=== PATIENT | female | born 1985 | race Caucasian/White ===

== ENCOUNTER 2018-03-22 17:05 | Emergency (ER) | payer MEDICARE, OTHER ==
[~2018-03-22] VITALS: Ht 167.6 cm; Wt 108.9 kg
[~2018-03-22 17:05] MED LIST: ACET325 PO; ALBIPROI INH; ALBU8HFA2 INH; ALBU90OI6 INH; ALBU90OI61 INH; ALPR.25 PO; ALUMAGSIMA; ALUMAGX30 PO; ASCO500 PO; ASPI81EC PO; AZIT200SU PO; AZIT250 PO; Antivert12.5 MG PO; Antivert25 MG PO; BECL40OI INH; BIRTH CONTROL; CALCA500CH PO; CEFD300 PO; CITA20 PO; CRUTCH4 USE; DIPH12.5EL PO; DOCU100 PO; ERGO50000 PO; ESCI10 PO; ESCI5 PO; ESOM20 PO; Expectoran100 MG/51 PO; FERR325; FERSU220EL PO; FLUT.05NI; Flonase 0.05% N16 GM; HERBAL; HYDACE5 PO; HYDCHL25; Hydrocodone-Ap1 EA23 PO; IRON INFUSIONS; IRON150C PO; LAMO100; LANS30EC PO; LEVFLO500 PO; LORA.5 PO; LORA1; LORA1 PO; LORA2; LORA2 PO; MEDR150I IM; META800 PO; METCAR500 PO; METPRE4DP PO; METR500 PO; MOMENI; NAPR500 PO; Naprosyn500 MG PO; ONDA4ODT MM; ORACONA; OXYACE5T PO; OXYACEL PO; OXYC1L PO; PRED20 PO; PROACE100 PO; PROM25 PO; Prevacid Soluta30 MG PO; RANI150; RANITIDINE 75 MG; RXLORA1 PO; RXONDA4ODT MM; RXOXYACE PO; RXPROACE PO; RXSULTRIDS PO; SPIR25; SUCR1 PO; SULTRIDS PO; TRAM50 PO; Ultram50 MG PO; Zithromax200 MG/5 M GT; Zithromax200 MG/5 M PO; [UNRECOGNIZED DRUG - OTHER]
[2018-03-22 17:47] LABS: BASOPHILS ABSOLUTE AUTO 0.02 K/mm3 (0.00-0.23); BASOPHILS PERCENT AUTO 0 % (0-2); EOSINOPHILS ABSOLUTE AUTO 0.18 K/mm3 (0.00-0.68); EOSINOPHILS PERCENT AUTO 2 % (0-6); Hemoglobin 14.1 g/dL (11.5-16.0); IMMATURE GRAN ABSOLUTE AUTO 0.02 K/mm3 (0.00-0.10); IMMATURE GRAN PERCENT AUTO 0 % (0-1); LYMPHOCYTES ABSOLUTE AUTO 1.95 K/mm3 (0.84-5.20); LYMPHOCYTES PERCENT AUTO 22 % (21-46); MONOCYTES ABSOLUTE AUTO 0.52 K/mm3 (0.16-1.47); MONOCYTES PERCENT AUTO 6 % (4-13); Mean Corpuscular HGB 30.9 pg (26.0-34.0); Mean Corpuscular HGB Conc 32.8 g/dL (31.5-36.5); Mean Corpuscular Volume 94 fL (80-100); Mean Platelet Volume 9.6 fL (9.1-12.4); NEUTROPHILS ABSOLUTE AUTO 6.24 K/mm3 (1.96-9.15); NEUTROPHILS PERCENT AUTO 70 % (41-73); Platelet Count 335 K/mm3 (150-400); RDW Coefficient Variation 13.7 % (11.7-14.2); RDW Standard Deviation 47.5 fL (35.1-46.3); Red Blood Cell Count 4.57 M/mm3 (3.80-5.20); White Blood Cell Count 8.93 K/mm3 (4.00-11.30)
[2018-03-22 18:11] LABS: Alanine Aminotransfer (ALT/SGP 23 U/L (12-78); Albumin, Blood 4.5 g/dL (3.4-5.0); Albumin/Globulin Ratio 1.5 (0.8-1.8); Alk Phos 98 U/L (50-136); Anion Gap 9 mmol/L (6-16); Aspartate Aminotrans (AST/SGOT 12 U/L (12-37); Bilirubin, Total 0.4 mg/dL (0.1-1.0); Blood Urea Nitrogen 10 mg/dL (8-24); Bun/Creatinine Ratio 14.3 (12.0-20.0); CO2, Blood 22 mmol/L (21-32); Chloride, Blood 106 mmol/L (98-108); Globulin, Blood 3.1 g/dL (2.2-4.0); Glomerular Filtration Rate >60 (60-); Glucose, Blood 110 mg/dL (70-99); Potassium, Blood 3.9 mmol/L (3.5-5.5); Sodium, Blood 137 mmol/L (136-145); Total Protein, Blood 7.6 g/dL (6.4-8.2)
[2018-03-22] MEDS ORDERED: ASCO500 PO (19:14)
[2018-03-22] MEDS ORDERED: LORA.5 (19:16)
[2018-03-22] MEDS ORDERED: [UNRECOGNIZED DRUG - REMARK] (19:16)
[2018-03-22 19:31] LABS: Source, Urine Clean Catch
[2018-03-22 19:36] LABS: Bilirubin, Urine Neg (Neg); Blood, Urine Neg (Neg); Glucose Qualitative, Urine Neg (Neg); Ketones, Urine Neg (Neg); Leukocyte Esterase, Urine Neg (Neg); Nitrite, Urine Neg (Neg); Protein, Urine Neg (Neg); Specific Gravity, Urine 1.015 (1.003-1.022); Urobilinogen, Urine NORM (Normal)
[2018-03-22 19:42] LABS: Appearance, Urine Clear (Clear); Color, Urine Yellow (P-Yellow)
== END 2018-03-22 20:02 | disposition home or self-care (01) ==
LOC: ER 17:05
PROVIDERS: Emergency Medicine; Physician Assistant
DX: R10.31 Right lower quadrant pain (principal); Z88.0 Allergy status to penicillin; Z88.5 Allergy status to narcotic agent; Z88.1 Allergy status to other antibiotic agents; Z91.040 Latex allergy status; Z88.2 Allergy status to sulfonamides; Z79.899 Other long term (current) drug therapy; K21.9 Gastro-esophageal reflux disease without esophagitis; J45.909 Unspecified asthma, uncomplicated; F17.210 Nicotine dependence, cigarettes, uncomplicated
CPT/HCPCS: 36415; 80053; 81003; 81025; 83690; 85025; 99283

== ENCOUNTER 2018-04-16 15:31 | Emergency (ER) | payer MEDICARE, OTHER ==
[~2018-04-16] VITALS: Ht 167.6 cm; Wt 108.9 kg
[~2018-04-16 15:31] MED LIST changes: +LORA.5; +[UNRECOGNIZED DRUG - REMARK]
[2018-04-16 16:18] LABS: BASOPHILS ABSOLUTE AUTO 0.04 K/mm3 (0.00-0.23); BASOPHILS PERCENT AUTO 0 % (0-2); EOSINOPHILS ABSOLUTE AUTO 0.14 K/mm3 (0.00-0.68); EOSINOPHILS PERCENT AUTO 1 % (0-6); Hemoglobin 13.7 g/dL (11.5-16.0); IMMATURE GRAN ABSOLUTE AUTO 0.03 K/mm3 (0.00-0.10); IMMATURE GRAN PERCENT AUTO 0 % (0-1); LYMPHOCYTES ABSOLUTE AUTO 2.56 K/mm3 (0.84-5.20); LYMPHOCYTES PERCENT AUTO 26 % (21-46); MONOCYTES ABSOLUTE AUTO 0.58 K/mm3 (0.16-1.47); MONOCYTES PERCENT AUTO 6 % (4-13); Mean Corpuscular HGB Conc 33.4 g/dL (31.5-36.5); Mean Corpuscular Volume 93 fL (80-100); Mean Platelet Volume 9.6 fL (9.1-12.4); NEUTROPHILS ABSOLUTE AUTO 6.65 K/mm3 (1.96-9.15); NEUTROPHILS PERCENT AUTO 67 % (41-73); Platelet Count 370 K/mm3 (150-400); RDW Coefficient Variation 12.6 % (11.7-14.2); RDW Standard Deviation 43.1 fL (35.1-46.3); Red Blood Cell Count 4.42 M/mm3 (3.80-5.20)
[2018-04-16 16:48] LABS: Alanine Aminotransfer (ALT/SGP 23 U/L (12-78); Albumin, Blood 4.3 g/dL (3.4-5.0); Albumin/Globulin Ratio 1.4 (0.8-1.8); Alk Phos 99 U/L (50-136); Anion Gap 8 mmol/L (6-16); Aspartate Aminotrans (AST/SGOT 11 U/L (12-37); Bilirubin, Total 0.2 mg/dL (0.1-1.0); Blood Urea Nitrogen 9 mg/dL (8-24); Bun/Creatinine Ratio 13.4 (12.0-20.0); CO2, Blood 23 mmol/L (21-32); Calcium, Blood 9.1 mg/dL (8.5-10.1); Chloride, Blood 109 mmol/L (98-108); Creatinine, Blood 0.67 mg/dL (0.40-1.00); Glomerular Filtration Rate >60 (60-); Glucose, Blood 89 mg/dL (70-99); Potassium, Blood 3.3 mmol/L (3.5-5.5); Sodium, Blood 140 mmol/L (136-145); Total Protein, Blood 7.3 g/dL (6.4-8.2)
[2018-04-16 18:08] LABS: Magnesium, Blood 2.1 mg/dL (1.6-2.4)
== END 2018-04-16 19:00 | disposition home or self-care (01) ==
LOC: ER 15:31
PROVIDERS: Emergency Medicine
DX: I49.3 Ventricular premature depolarization (principal); R07.89 Other chest pain; R00.2 Palpitations; E87.6 Hypokalemia; K21.9 Gastro-esophageal reflux disease without esophagitis; J45.909 Unspecified asthma, uncomplicated; F41.9 Anxiety disorder, unspecified; F17.200 Nicotine dependence, unspecified, uncomplicated; Z88.0 Allergy status to penicillin; Z88.5 Allergy status to narcotic agent; Z88.7 Allergy status to serum and vaccine; Z91.040 Latex allergy status; Z88.1 Allergy status to other antibiotic agents; Z88.8 Allergy status to other drugs, medicaments and biological substances; Z88.6 Allergy status to analgesic agent; Z88.2 Allergy status to sulfonamides; Z79.899 Other long term (current) drug therapy
CPT/HCPCS: 36415; 71046; 80053; 83735; 84443; 85025; 93005; 93010; 99284

== ENCOUNTER 2021-02-03 13:17 | Emergency (ER) | payer MEDICARE, OTHER ==
[~2021-02-03] VITALS: Ht 167.6 cm; Wt 104.3 kg
[2021-02-03 14:14] LABS: BASOPHILS ABSOLUTE AUTO 0.03 K/mm3 (0.00-0.23); BASOPHILS PERCENT AUTO 0 % (0-2); EOSINOPHILS ABSOLUTE AUTO 0.14 K/mm3 (0.00-0.68); EOSINOPHILS PERCENT AUTO 2 % (0-6); Hematocrit 42.7 % (33.0-51.0); Hemoglobin 14.3 g/dL (11.5-16.0); IMMATURE GRAN ABSOLUTE AUTO 0.02 K/mm3 (0.00-0.10); IMMATURE GRAN PERCENT AUTO 0 % (0-1); LYMPHOCYTES ABSOLUTE AUTO 2.26 K/mm3 (0.84-5.20); LYMPHOCYTES PERCENT AUTO 28 % (21-46); MONOCYTES ABSOLUTE AUTO 0.59 K/mm3 (0.16-1.47); MONOCYTES PERCENT AUTO 7 % (4-13); Mean Corpuscular HGB 31.1 pg (26.0-34.0); Mean Corpuscular HGB Conc 33.5 g/dL (31.5-36.5); Mean Corpuscular Volume 93 fL (80-100); Mean Platelet Volume 9.8 fL (9.1-12.4); NEUTROPHILS ABSOLUTE AUTO 5.19 K/mm3 (1.96-9.15); NEUTROPHILS PERCENT AUTO 63 % (41-73); Platelet Count 362 K/mm3 (150-400); RDW Coefficient Variation 12.6 % (11.7-14.2); RDW Standard Deviation 42.7 fL (35.1-46.3); White Blood Cell Count 8.23 K/mm3 (4.00-11.30)
[2021-02-03 14:26] LABS: Alanine Aminotransfer (ALT/SGP 21 U/L (12-78); Albumin/Globulin Ratio 1.2 (0.8-1.8); Alk Phos 92 U/L (50-136); Anion Gap 6 mmol/L (6-16); Aspartate Aminotrans (AST/SGOT 10 U/L (12-37); Bilirubin, Total 0.4 mg/dL (0.1-1.0); Blood Urea Nitrogen 13 mg/dL (8-24); Bun/Creatinine Ratio 20.5 (12.0-20.0); CO2, Blood 24 mmol/L (21-32); Calcium, Blood 8.9 mg/dL (8.5-10.1); Chloride, Blood 109 mmol/L (98-108); Creatinine, Blood 0.64 mg/dL (0.40-1.00); Globulin, Blood 3.2 g/dL (2.2-4.0); Glomerular Filtration Rate >60 (60-); Glucose, Blood 83 mg/dL (70-99); Potassium, Blood 3.6 mmol/L (3.5-5.5); Sodium, Blood 139 mmol/L (136-145); Total Protein, Blood 7.2 g/dL (6.4-8.2)
[2021-02-03 15:11] LABS: Source, Urine Clean Catch
[2021-02-03 15:22] LABS: Bilirubin, Urine Neg (Neg); Blood, Urine Neg (Neg); Glucose Qualitative, Urine Neg (Neg); Ketones, Urine 2+ (Neg); Leukocyte Esterase, Urine Neg (Neg); Nitrite, Urine Neg (Neg); Protein, Urine Neg (Neg); Urobilinogen, Urine NORM (Normal)
[2021-02-03 15:27] LABS: Appearance, Urine Hazy (Clear); Color, Urine Pale Yellow (P-Yellow)
[2021-02-03 15:29] LABS: Bacteria Many /hpf; Red Blood Cells, Urine 0-2 /hpf (0-2); Squamous Epithelial Cells Few /hpf (Few); White Blood Cells, Urine 0-2 /hpf (0-5)
[2021-02-03] MEDS ORDERED: CEFP200 PO (15:51)
[2021-02-04] MEDS ORDERED: CEFP50SU PO (15:30)
== END 2021-02-03 16:36 | disposition home or self-care (01) ==
LOC: ER 13:17
PROVIDERS: Physician Assistant
DX: N39.0 Urinary tract infection, site not specified (principal); F17.210 Nicotine dependence, cigarettes, uncomplicated
CPT/HCPCS: 36415; 74177; 80053; 81001; 83690; 85025; 87086; 93005; 93010; 96374-59; 96375; 99284-25; J0780; J1885; Q9967

== ENCOUNTER 2024-09-16 17:42 | Observation (INO) | payer MEDICARE ==
[~2024-09-16] VITALS: Ht 170.2 cm; Wt 102.7 kg
[~2024-09-16 17:42] MED LIST changes: +CEFP200 PO; +CEFP50SU PO
[2024-09-16] MEDS ORDERED: Prochlorperazine Edisylate 10 mg Vial IV ONE (18:10)
[2024-09-16] MEDS ORDERED: Ketorolac Tromethamine 30mg Vial IV ONE (18:10)
[2024-09-16] MEDS ORDERED: Morphine Sulfate 4 MG/1 ML Injection IV ONE (18:30)
[2024-09-16] MEDS ORDERED: Lactated Ringer's 1,000 ML IV ONE (18:30)
[2024-09-16 18:48] LABS: BASOPHILS ABSOLUTE AUTO 0.05 K/mm3 (0.00-0.23); BASOPHILS PERCENT AUTO 0 % (0-2); EOSINOPHILS PERCENT AUTO 2 % (0-6); Hematocrit 40.5 % (33.0-51.0); IMMATURE GRAN ABSOLUTE AUTO 0.04 K/mm3 (0.00-0.10); IMMATURE GRAN PERCENT AUTO 0 % (0-1); LYMPHOCYTES ABSOLUTE AUTO 2.33 K/mm3 (0.84-5.20); LYMPHOCYTES PERCENT AUTO 19 % (21-46); MONOCYTES ABSOLUTE AUTO 0.57 K/mm3 (0.16-1.47); MONOCYTES PERCENT AUTO 5 % (4-13); Mean Corpuscular HGB 31.7 pg (26.0-34.0); Mean Corpuscular HGB Conc 34.6 g/dL (31.5-36.5); Mean Corpuscular Volume 92 fL (80-100); Mean Platelet Volume 9.1 fL (9.1-12.4); NEUTROPHILS ABSOLUTE AUTO 9.33 K/mm3 (1.96-9.15); NEUTROPHILS PERCENT AUTO 75 % (41-73); Platelet Count 312 K/mm3 (150-400); RDW Coefficient Variation 12.4 % (11.7-14.2); RDW Standard Deviation 41.9 fL (35.1-46.3); Red Blood Cell Count 4.42 M/mm3 (3.80-5.20); White Blood Cell Count 12.52 K/mm3 (4.00-11.30)
[2024-09-16 19:08] LABS: Albumin, Blood 4.1 g/dL (3.4-5.0); Albumin/Globulin Ratio 1.5 (0.8-1.8); Bilirubin, Total 0.3 mg/dL (0.1-1.0); Bun/Creatinine Ratio 17.1 (12.0-20.0); Calcium, Blood 9.3 mg/dL (8.5-10.1); Creatinine, Blood 0.7 mg/dL (0.40-1.00); Globulin, Blood 2.8 g/dL (2.2-4.0); Potassium, Blood 3.6 mmol/L (3.5-5.5); Total Protein, Blood 6.9 g/dL (6.4-8.2)
[2024-09-16 19:15] LABS: Source, Urine Clean Catch
[2024-09-16 19:17] LABS: Appearance, Urine Clear (Clear); Bilirubin, Urine Neg (Neg); Blood, Urine Neg (Neg); Color, Urine Yellow (P-Yellow); Glucose Qualitative, Urine Neg (Neg); Ketones, Urine 1+ (Neg); Leukocyte Esterase, Urine Neg (Neg); Nitrite, Urine Neg (Neg); Protein, Urine Neg (Neg); Specific Gravity, Urine 1.005 (1.003-1.022); Urobilinogen, Urine NORM (Normal)
[2024-09-16] MEDS ORDERED: ACETAMINOP160 MG/51 PO (19:27)
[2024-09-16] MEDS ORDERED: VITAMIN C125 MG PO (19:28)
[2024-09-16] MEDS ORDERED: CefOXitin Sodium 2,000 MG in NS 50 ML IV ONE (21:20)
[2024-09-16] MEDS ORDERED: FLU VACC TS2024-25(6MOS UP)/PF 45 MCG/0.5 ML SYRINGE IM SCH (21:45)
[2024-09-16] MEDS ORDERED: FentaNYL Citrate 50 MCG/ML 2 ML Injection IV PRN (21:45)
[2024-09-16] MEDS ORDERED: Metoclopramide HCl 5MG / ML 2ML Vial IV PRN (21:45)
[2024-09-16] MEDS ORDERED: NS 1,000 ML IV SCH ×2 (21:50→22:40)
[2024-09-16] MEDS ORDERED: MetroNIDAZOLE 500MG/NS 100 ml 100 ML IV SCH (22:00)
[2024-09-16 22:42] VITALS: BP 118/72
--- NOTE | 2024-09-16 23:26 | NUR ---
ARRIVAL TO UNIT ARRIVED TO UNIT WITH SPOUSE AT 2235. A&OX4. AMBULATING INDEPENDENTLY. ENDORSES PAIN 3/10 TO RLQ, RADIATES TO RL BACK. ENDORSES "MILD NAUSEA". PLEASANT & COOPERATIVE WITH CARES. ORIENTED PT TO UNIT & DISCUSSED PLAN OF CARE. PT VOICED UNDERSTANDING. EXPRESSES CONCERN REGARDING ANESTHESIA, REPORTS NEGATIVE EXPERIENCES WITH ANESTHESIA (WOKE UP DURING COLONOSCOPY) & REPORTS ANXIETY ABOUT ANESTHESIA FOR APPENDECTOMY. THIS RN ADVISED PT TO DISCUSS ANESTHESIA CONCERNS WITH SURGEON DURING ROUNDS IN AM PREOPERATIVELY. PT IN AGREEANCE WITH THIS PLAN. DENIES FURTHER QUESTIONS/CONCERNS AT THIS TIME.
[2024-09-16] MEDS ORDERED: Ketorolac Tromethamine 15mg Vial IV PRN (23:40)
[2024-09-17] VITALS (18 sets, daily range): BP systolic 98–160; BP diastolic 42–91
--- NOTE | 2024-09-17 01:26 | NUR ---
TELEMETRY MITZI WITH TELEMETRY REPORTS SINUS XIN RHYTHM AT 38BPM FOR X5 BEATS. RESOLVED, CURRENT RHYTHM IS SINUS XIN AT 43. PT ASYMPTOMATIC & NO CHANGE IN PRESENTATION. SQUILGEER MADE AWARE.
--- NOTE | 2024-09-17 04:10 | NUR ---
SHIFT SUMMARY NO ACUTE CHANGES OVERNIGHT. NPO AT MIDNIGHT, PREOPERATIVE. IVF PER EMAR. PT ENDORSES RLQ ABD PAIN RADIATING TO RL BACK. PAIN MANGED UTILIZING NPIS AND PER EMAR. A&OX4. ABLE TO VOICE NEEDS, USED CALL LIGHT APPROPRIATELY T/O SHIFT. AMBULATING INDEPENDENTLY. SPOUSE AT BEDSIDE; SUPPORTIVE. PT ABLE TO REST DURING SHIFT. PT VOICED UNDERSTANDING OF PLAN OF CARES, DENIES FURTHER QUESTIONS AT THIS TIME. EXPRESSED CONCERNS REGARDING ANESTHESIA THAT PT WILL DISCUSS WITH ANESTHEOLOGIST/SURGEON PREOPERATIVELY. THIS RN WILL PASS ALONG HER CONCERNS TO DAYSHIFT RN ASSIGNED TO PT.
[2024-09-17 05:00] LABS: BASOPHILS ABSOLUTE AUTO 0.02 K/mm3 (0.00-0.23); BASOPHILS PERCENT AUTO 0 % (0-2); EOSINOPHILS ABSOLUTE AUTO 0.15 K/mm3 (0.00-0.68); EOSINOPHILS PERCENT AUTO 2 % (0-6); Hematocrit 34.5 % (33.0-51.0); Hemoglobin 12.1 g/dL (11.5-16.0); IMMATURE GRAN ABSOLUTE AUTO 0.02 K/mm3 (0.00-0.10); IMMATURE GRAN PERCENT AUTO 0 % (0-1); LYMPHOCYTES ABSOLUTE AUTO 1.92 K/mm3 (0.84-5.20); LYMPHOCYTES PERCENT AUTO 25 % (21-46); MONOCYTES PERCENT AUTO 8 % (4-13); Mean Corpuscular HGB 32.1 pg (26.0-34.0); Mean Corpuscular HGB Conc 35.1 g/dL (31.5-36.5); Mean Corpuscular Volume 92 fL (80-100); Mean Platelet Volume 9.4 fL (9.1-12.4); NEUTROPHILS ABSOLUTE AUTO 4.85 K/mm3 (1.96-9.15); NEUTROPHILS PERCENT AUTO 64 % (41-73); Platelet Count 259 K/mm3 (150-400); RDW Coefficient Variation 12.6 % (11.7-14.2); RDW Standard Deviation 42.1 fL (35.1-46.3); Red Blood Cell Count 3.77 M/mm3 (3.80-5.20); White Blood Cell Count 7.56 K/mm3 (4.00-11.30)
[2024-09-17] MEDS ORDERED: Mag Hydrox/Al Hydrox/Simeth 72 ML,Lidocaine 2% Viscous Soln 36 ML,Atropine/Scopalam/Hyo... PO PRN (05:15)
[2024-09-17 05:32] LABS: Albumin, Blood 3.2 g/dL (3.4-5.0); Albumin/Globulin Ratio 1.5 (0.8-1.8); Bilirubin, Total 0.7 mg/dL (0.1-1.0); Bun/Creatinine Ratio 16.9 (12.0-20.0); Calcium, Blood 8.3 mg/dL (8.5-10.1); Creatinine, Blood 0.71 mg/dL (0.40-1.00); Globulin, Blood 2.2 g/dL (2.2-4.0); Potassium, Blood 3.7 mmol/L (3.5-5.5); Total Protein, Blood 5.4 g/dL (6.4-8.2)
[2024-09-17] MEDS ORDERED: Pantoprazole Sodium 40 MG Tab PO SCH (06:00)
[2024-09-17] MEDS ORDERED: Albuterol HFA200 ACT/6.7 GM INH INH PRN (06:50)
[2024-09-17] MEDS ORDERED: CefOXitin Sodium 2,000 MG in NS 50 ML IV SCH (08:00)
--- NOTE | 2024-09-17 08:50 | NUR ---
PT TO DAY SURGERY WITH OR NURSE
[2024-09-17] MEDS ORDERED: Lactated Ringer's 1,000 ML IV ONE (08:52)
[2024-09-17] MEDS ORDERED: Fluticasone 0.05% Nasal Spray SCH (09:00)
[2024-09-17] MEDS ORDERED: Bupivacaine 0.5% HCl 5 MG/ML 30MLVIAL ONE (09:22)
--- NOTE | 2024-09-17 09:29 | NUR ---
PT ARRIVES TO PACU VIA GURNEY FROM RM 228 AT 0900. PLEASANT & COOPERATIVE. AFEBRILE/HR SINUS XIN UPPER 50s PER EMBLEM DRAWER IN. TELEMETRY REMOVED FOR SURGERY. LR AT TKO & 0800 FLAGYL NOW INFUSING. SURGICAL HAT/BP CUFF/PAS SLEEVES PLACED/WARM BLANKETS PLACED. SURGICAL PACK COMPLETE. RESTING QUIETLY. NO COMPLAINTS.
--- NOTE | 2024-09-17 09:31 | NUR ---
PT BACK TO . SURGERY DELAYED AT THIS TIME DUE TO PO MEDS THAT WERE GIVEN DURING NOC SHIFT. PT IS OK WITH THIS AND IN GOOD MOOD. NO COMPLAINTS OF PAIN. PT TRANSFERRED HERSELF FROM [facility] TO BED.
--- NOTE | 2024-09-17 10:01 | NUR ---
MARILU RENEE CRNA AT [facility] SIDE SPEAKING w/PATIENT AT 0915. AFTER REVIEWING CHART IT WAS DISCOVERED PT WAS GIVEN ORAL MAALOX AT 0546 THIS MORNING. SURGERY NOW POSTPONED UNTIL 1115. AFTER DISCUSSING THE REASONS FOR POSTPOSTMENT PT WAS RETURNED TO RM 228 VIA [facility] IN STABLE CONDITION. TELEMETRY PLACED & VERIFIED PER MONOTYPE OPERATOR AT 0940.
[2024-09-17] MEDS ORDERED: propofoL 20 ML IV ONE (11:52)
[2024-09-17] MEDS ORDERED: FentaNYL Citrate 50 MCG/ML 2 ML Injection ONE (11:52)
[2024-09-17] MEDS ORDERED: Ketorolac Tromethamine 30mg Vial ONE ×2 (11:53→13:35)
[2024-09-17] MEDS ORDERED: Rocuronium Bromide 10 MG/ML 5ML Injection IV ONE (11:53)
[2024-09-17] MEDS ORDERED: Ondansetron HCl 2 MG / ML 2ML Vial ONE ×2 (11:53→13:39)
[2024-09-17] MEDS ORDERED: Dexamethasone Sod Phos 10 MG/ML 1ML VIAL ONE (11:53)
--- NOTE | 2024-09-17 11:59 | NUR ---
PT ARRRIVE TO PACU FOR PREOP CARE AT 1200. TALKATIVE & FRIENDLY. LR AT TKO. VERSED 2MG IV GIVEN NOW (1210) PER MARILU MIRANDA. SURGICAL PACK COMPLETE. SURGICAL HAT/PAS SLEEVES/ BP CUFF & WARM BLANKETS PLACED. RESTING QUIETLY. NO COMPLAINTS AT THIS TIME.
--- NOTE | 2024-09-17 12:00 | NUR ---
PT TO DAY SURGERY WITH OR NURSE
[2024-09-17] MEDS ORDERED: Midazolam HCl 1MG / ML 2ML Vial ONE (12:05)
--- NOTE | 2024-09-17 12:37 | NUR ---
PT TO OR RM 3 VIA GURNEY IN STABLE CONDITION AT 1235. NO COMPLAINTS. RESTING QUIETLY.
[2024-09-17] MEDS ORDERED: Sugammadex Sodium 200 MG/2ML SDV (100 MG/ML) ONE (13:05)
[2024-09-17] MEDS ORDERED: HYDROmorphone HCl/Pf 1MG SYR ONE (13:39)
--- NOTE | 2024-09-17 14:00 | NUR ---
PT ARRIVES FROM PACU A/OX4. PT HAS 3X LAP SITES WITH STERI-STRIPS AND SKIN GLUE. PT REPOSITIONED IN BED FOR COMFORT. MULTIPLE FAMILY MEMBERS/FRIENDS TO ROOM. PT GIVEN WATER, JELLO AND CRACKERS. DRSG ARE C/D/I. CALL LIGHT IN REACH.
--- NOTE | 2024-09-17 15:30 | NUR ---
PT HAS NOT REQUESTED OR WANTED ANYTHING FOR PAIN TO THIS POINT. PT WAS WANTING TO POSSIBLY DISCHARGE TODAY, SO I NOTIFIED HOSPITALIST AND SURGEON. PT WAS ASKING IF SHE COULD BE PRESCRIBED PAIN MEDICINE TO GO HOME WITH, BUT DUE TO HISTORY WANTED ORAL DILAUDID. PT STS THAT SHE COULD NOT HAVE OTHER ORAL NARCOTICS DUE TO RESPIRATORY DEPRESSION AND HALLUCINATIONS. SHE REFERS TO THESE "SENSITIVIES." I TRIED EXPLAINING TO PT THAT DILAUDID IS A NARCOTIC AND HAS SIMILAR SIDE EFFECTS. PT STS THAT DILAUDID HAS NOT CAUSED THESE PROBLEMS IN THE PAST. PT CLEARED TO GO HOME BY DR LEUNG, SO DR NOWAK WAS NOTIFIED. HE DID NOT FEEL COMFORTABLE SENDING THE PATIENT HOME WITH DILAUDID WITH HER HISTORY OF SIDE EFFECTS FROM [place]. PT NOTIFIED OF THIS AND BECAME UPSET. PT EXPLAINED THAT SHE HAS A LONG HISTORY OF SURGERIES AND MEDICAL PTSD. SHE SAID THAT SHE FELT INVALIDATED ABOUT HER PAIN. SHE WAS VERY EXPRESSIVE AND TALKING RAPIDLY ABOUT HER HISTORY REGARDING BEING ON HOSPICE IN THE PAST, HER DAUGHTER BEING AN AUTHOR, AND OTHER THINGS IN HER LIFE. I EXPLAINED TO THE PATIENT THAT THE DOCTOR WAS NOT WANTING TO GIVE HER ANYTHING THAT WILL PUT HER AT RISK OF RESP DEPRESSION.
--- NOTE | 2024-09-17 17:00 | NUR ---
PT IS NOW MORE CALM AND APOLOGIZES FOR ESCALATING. PT REASSURED THAT NO OFFENSE WAS TAKEN AND THAT I WAS GLAD THAT WE WERE ABLE TO OVERCOME THIS ISSUE. PT IS APPRECIATIVE OF CARE.
--- NOTE | 2024-09-17 18:00 | NUR ---
PT CLARIFIES THAT SHE CAN HAVE VICODIN W/O ISSUE.
[2024-09-18 03:25] VITALS: BP 107/60
--- NOTE | 2024-09-18 07:47 | NUR ---
SHIFT SUMMARY NOC. PT POD 1 FOR LAP APPY. PT A/OX4, LAP SITES X3 ON ABDOMEN ARE C/D/I WITH SCANT SANG DRAINAGE ON UMBILICAL SITE. PT REPORTED PAIN AND MEDICATED WITH TORADOL AND FENT 25MCG. PT HESITANT TO TAKE FENT, BUT ENCOURAGED D/T PAIN CLIMBING AND PREVENTING REST AND SLEEP. PT VOIDING URINE AND TOLERATING PO INTAKE. AMBULATING WELL IN THE HALLS AND TO THE BATHROOM. PT TEARFUL AT TIMES DURING SHIFT R/T EVENTS OF THE DAY WITH SURGERY AND DISAGREEMENT WITH DAY SHIFT RN. REASURANCE OF SAFETY AND CARE PROVIDED. PT REPORTED TO THIS RN A SIDE EFFECT OF HALLUCINATIONS WITH TAKING VICODIN. NOTIFIED ONCOMING DAY SHIFT NURSE OF THIS SIDE EFFECT. FAMILY AT BEDSIDE THROUGHOUT THE NIGHT. CALL LIGHT IN REACH.
[2024-09-18] MEDS ORDERED: NAPR500EC PO (09:21)
[2024-09-18] MEDS ORDERED: HYDMOR2 PO (09:22)
[2024-09-18 10:08] VITALS: BP 117/70
--- NOTE | 2024-09-18 10:16 | NUR ---
DISCHARGED VSS. REVIEWED DC INSTRUCTIONS W/PT. VERBALIZED UNDERSTANDING. PT LEFT UNIT BY AMBULATION (WC OFFERED), ACCOMPANIED BY FAMILY, WITH POSSESSIONS AND DC PAPERWORK IN HAND.
== END 2024-09-18 10:10 | disposition home or self-care (01) ==
LOC: ER 17:42 → SURS 22:20
PROVIDERS: Student in an Organized Health Care Education/Training Program; ADMIT Internal Medicine
DX: K35.80 Unspecified acute appendicitis (principal); K21.9 Gastro-esophageal reflux disease without esophagitis; J45.909 Unspecified asthma, uncomplicated; F17.210 Nicotine dependence, cigarettes, uncomplicated; Z88.0 Allergy status to penicillin; Z88.5 Allergy status to narcotic agent; Z88.1 Allergy status to other antibiotic agents; Z88.8 Allergy status to other drugs, medicaments and biological substances; Z79.899 Other long term (current) drug therapy
CPT/HCPCS: 36415; 74177; 80053; 81003; 81025; 83690; 83880; 85025; 88304; 93005; 93010; 94640; 94664; 94760; 96361; 96365-59; 96366; 96375; 96376; 99285-25; A9270; G0378; J0694; J0780; J1100; J1171; J1885; J2250; J2405; J2704; J3010; J7030; J7120; Q9967

== ENCOUNTER 2024-10-06 14:01 | Emergency (ER) | payer MEDICARE ==
[~2024-10-06] VITALS: Ht 170.2 cm; Wt 103.0 kg
[~2024-10-06 14:01] MED LIST changes: +ACETAMINOP160 MG/51 PO; +HYDMOR2 PO; +NAPR500EC PO; +VITAMIN C125 MG PO
[2024-10-06 14:14] LABS: Source, Urine Clean Catch
[2024-10-06 14:21] LABS: Appearance, Urine Clear (Clear); Bilirubin, Urine Neg (Neg); Blood, Urine Neg (Neg); Color, Urine Pale Yellow (P-Yellow); Glucose Qualitative, Urine Neg (Neg); Ketones, Urine Neg (Neg); Leukocyte Esterase, Urine Neg (Neg); Nitrite, Urine Neg (Neg); Protein, Urine Neg (Neg); Urobilinogen, Urine NORM (Normal)
[2024-10-06 15:08] LABS: BASOPHILS ABSOLUTE AUTO 0.04 K/mm3 (0.00-0.23); BASOPHILS PERCENT AUTO 0 % (0-2); EOSINOPHILS ABSOLUTE AUTO 0.13 K/mm3 (0.00-0.68); EOSINOPHILS PERCENT AUTO 1 % (0-6); Hemoglobin 14.2 g/dL (11.5-16.0); IMMATURE GRAN ABSOLUTE AUTO 0.04 K/mm3 (0.00-0.10); IMMATURE GRAN PERCENT AUTO 0 % (0-1); LYMPHOCYTES ABSOLUTE AUTO 1.92 K/mm3 (0.84-5.20); LYMPHOCYTES PERCENT AUTO 16 % (21-46); MONOCYTES ABSOLUTE AUTO 0.47 K/mm3 (0.16-1.47); MONOCYTES PERCENT AUTO 4 % (4-13); Mean Corpuscular HGB 31.6 pg (26.0-34.0); Mean Corpuscular HGB Conc 33.8 g/dL (31.5-36.5); Mean Corpuscular Volume 94 fL (80-100); Mean Platelet Volume 9.1 fL (9.1-12.4); NEUTROPHILS ABSOLUTE AUTO 9.29 K/mm3 (1.96-9.15); NEUTROPHILS PERCENT AUTO 78 % (41-73); Platelet Count 321 K/mm3 (150-400); RDW Coefficient Variation 12.7 % (11.7-14.2); RDW Standard Deviation 43.5 fL (35.1-46.3); Red Blood Cell Count 4.49 M/mm3 (3.80-5.20); White Blood Cell Count 11.89 K/mm3 (4.00-11.30)
[2024-10-06 15:28] LABS: Albumin, Blood 3.9 g/dL (3.4-5.0); Albumin/Globulin Ratio 1.3 (0.8-1.8); Bilirubin, Total 0.4 mg/dL (0.1-1.0); Bun/Creatinine Ratio 18.5 (12.0-20.0); Calcium, Blood 9.3 mg/dL (8.5-10.1); Creatinine, Blood 0.65 mg/dL (0.40-1.00); Globulin, Blood 3.1 g/dL (2.2-4.0); Potassium, Blood 3.8 mmol/L (3.5-5.5)
[2024-10-06] MEDS ORDERED: Mag Hydrox/AL Hydrox/Simeth 30 ML UDC PO ONE (15:30)
[2024-10-06] MEDS ORDERED: Prochlorperazine Edisylate 10 mg Vial IV ONE (17:00)
[2024-10-06 17:29] VITALS: BP 109/81
== END 2024-10-06 18:01 | disposition home or self-care (01) ==
LOC: ER 14:01
PROVIDERS: Physician Assistant
DX: R07.89 Other chest pain (principal); R10.13 Epigastric pain; R11.0 Nausea; J45.909 Unspecified asthma, uncomplicated; F17.210 Nicotine dependence, cigarettes, uncomplicated; Z79.51 Long term (current) use of inhaled steroids; Z79.899 Other long term (current) drug therapy; Z88.0 Allergy status to penicillin; Z91.040 Latex allergy status; Z88.1 Allergy status to other antibiotic agents; Z88.5 Allergy status to narcotic agent; Z88.6 Allergy status to analgesic agent; Z88.8 Allergy status to other drugs, medicaments and biological substances
CPT/HCPCS: 71046; 80053; 81003; 83690; 84484; 85025; 93005; 93010; 96374; 99285-25; A9270; J0780

== ENCOUNTER 2025-10-02 12:27 | Emergency (ER) | payer MEDICARE ==
[~2025-10-02] VITALS: Ht 170.2 cm; Wt 103.4 kg
[2025-10-02] MEDS ORDERED: Prochlorperazine Edisylate 10 mg Vial IV ONE (12:40)
[2025-10-02 13:08] LABS: BASOPHILS ABSOLUTE AUTO 0.03 K/mm3 (0.00-0.23); BASOPHILS PERCENT AUTO 0 % (0-2); EOSINOPHILS ABSOLUTE AUTO 0.12 K/mm3 (0.00-0.68); EOSINOPHILS PERCENT AUTO 1 % (0-6); Hematocrit 41.3 % (33.0-51.0); Hemoglobin 13.8 g/dL (11.5-16.0); IMMATURE GRAN ABSOLUTE AUTO 0.03 K/mm3 (0.00-0.10); IMMATURE GRAN PERCENT AUTO 0 % (0-1); LYMPHOCYTES ABSOLUTE AUTO 1.93 K/mm3 (0.84-5.20); LYMPHOCYTES PERCENT AUTO 21 % (21-46); MONOCYTES ABSOLUTE AUTO 0.52 K/mm3 (0.16-1.47); MONOCYTES PERCENT AUTO 6 % (4-13); Mean Corpuscular HGB Conc 33.4 g/dL (31.5-36.5); Mean Corpuscular Volume 92 fL (80-100); NEUTROPHILS ABSOLUTE AUTO 6.43 K/mm3 (1.96-9.15); NEUTROPHILS PERCENT AUTO 71 % (41-73); NRBC ABSOLUTE 0.00 K/mm3 (0.00-0.02); NRBC Auto 0.0 /100 WBC (0.0-0.2); Platelet Count 358 K/mm3 (150-400); RDW Coefficient Variation 12.8 % (11.7-14.2); RDW Standard Deviation 43.5 fL (35.1-46.3)
[2025-10-02 13:40] LABS: Alanine Aminotransfer (ALT/SGP 28.0 U/L (12-78); Albumin, Blood 4.1 g/dL (3.4-5.0); Albumin/Globulin Ratio 1.3 (0.8-1.8); Anion Gap 8.0 mmol/L (3-11); Aspartate Aminotrans (AST/SGOT 16.0 U/L (12-37); Bilirubin, Total 0.5 mg/dL (0.1-1.0); Blood Urea Nitrogen 11.0 mg/dL (8-24); CO2, Blood 25.0 mmol/L (21-32); Calcium, Blood 8.9 mg/dL (8.5-10.1); Chloride, Blood 108.0 mmol/L (98-108); Creatinine, Blood 0.67 mg/dL (0.40-1.00); Globulin, Blood 3.1 g/dL (2.2-4.0); Glucose, Blood 88.0 mg/dL (70-99); Potassium, Blood 3.9 mmol/L (3.5-5.5); Sodium, Blood 137.0 mmol/L (136-145); Total Protein, Blood 7.2 g/dL (6.4-8.2)
[2025-10-02 15:49] LABS: Source, Urine Clean Catch
[2025-10-02 15:51] LABS: Bilirubin, Urine Neg (Neg); Color, Urine Yellow (P-Yellow); Glucose Qualitative, Urine Neg (Neg); Ketones, Urine Neg (Neg); Leukocyte Esterase, Urine Neg (Neg); Protein, Urine 1+ (Neg); Specific Gravity, Urine 1.010 (1.003-1.022); Urobilinogen, Urine NORM (Normal)
[2025-10-02 16:23] VITALS: BP 109/73
== END 2025-10-02 16:20 | disposition home or self-care (01) ==
LOC: ER 12:27
PROVIDERS: Physician Assistant
DX: K92.1 Melena (principal); N20.0 Calculus of kidney; J45.909 Unspecified asthma, uncomplicated; F17.210 Nicotine dependence, cigarettes, uncomplicated
CPT/HCPCS: 74177; 80053; 82272; 85025; 96374-59; 99284-25; J0780; Q9967